=== PATIENT | female | born 1960 | race Caucasian/White ===

== ENCOUNTER → 2016-07-08 | Outpatient (CLI) | payer BC ==
[~2016-07-08] MED LIST: ALBUAER19 INH; BUTA1CAP6 PO; CHN/1 PO; CHOL20009 PO; CLOP1TAB15 PO; MULT-506 PO; PANT40TA PO; PROP80CA7 PO
== END | disposition home or self-care (01) ==
LOC: C.PATHSPEC 13:01
PROVIDERS: ATTEND Obstetrics & Gynecology
DX: N90.89 Other specified noninflammatory disorders of vulva and perineum (principal)

== ENCOUNTER → 2016-07-09 | Outpatient (CLI) | payer BC ==
[2016-07-09 09:37] LABS: BASO % 0.7 %; BASO ABS # 0.05 K/uL (0-0.2); COMPLETE YES; EOS % 1.8 %; HEMATOCRIT 38.8 % (37-47); IG% 0.1 %; LYMPH % 41.4 %; LYMPH ABS # 3.06 K/uL (1.2-3.4); MEAN CELL VOLUME 92.4 fL (80-100); MEAN CORPUSCULAR HEMOGLOBIN 31.2 pg (25-34); MEAN CORPUSCULAR HGB CONC 33.8 g/dl (32-36); MEAN PLATELET VOLUME 9.1 fL (7.4-10.4); MONO % 11.1 %; NEUT % 44.9 %; PLATELET COUNT 381 K/uL (130-400); WHITE BLOOD COUNT 7.39 K/uL (4.8-10.8)
[2016-07-09 09:53] LABS: URINE APPEARANCE CLEAR (CLEAR); URINE BILIRUBIN NEG (NEG); URINE COLOR YELLOW; URINE NITRITE NEG (NEG); URINE SPECIFIC GRAVITY 1.021 (1.000-1.030); UROBILINOGEN NEG (NEG); ZZUR CULT IF INDIC CLEAN CATCH NO
[2016-07-09 09:58] LABS: MANUAL MICROSCOPIC REQUIRED? YES; REVIEW REQ? NO
[2016-07-09 10:17] LABS: BLOOD UREA NITROGEN 19 mg/dl (7-18); BUN/CREATININE RATIO 28.8 (10-20); CALCIUM 8.9 mg/dl (8.5-10.1); CARBON DIOXIDE 28 mmol/L (21-32); CHLORIDE 107 mmol/L (98-107); CHOLESTEROL 169 mg/dl (0-200); CREATININE 0.65 mg/dl (0.60-1.20); GLUCOSE 97 mg/dl (70-99); POTASSIUM 3.7 mmol/L (3.5-5.1); SODIUM 141 mmol/L (136-145); URINE RBC 0-4 /hpf (0-4)
[2016-07-09 10:18] LABS: URINE BACTERIA NEG (NEG)
[2016-07-09 10:27] LABS: CHOLESTEROL/HDL RATIO 2.5; HDL CHOLESTEROL 68 mg/dl; LDL CHOLESTEROL CALCULATED 86 mg/dl; TRIGLYCERIDES 73 mg/dl (0-150); VERY LOW DENSITY LIPOPROT CALC 15 mg/dl
== END | disposition home or self-care (01) ==
LOC: C.LAB1850 06:51
PROVIDERS: ATTEND Internal Medicine
DX: Z11.59 Encounter for screening for other viral diseases (principal); E55.9 Vitamin D deficiency, unspecified; E78.5 Hyperlipidemia, unspecified; I63.9 Cerebral infarction, unspecified; N39.46 Mixed incontinence

== ENCOUNTER → 2016-07-22 | Outpatient (CLI) | payer BC | END | disposition home or self-care (01) | LOC: C.LABSPEC 17:17 | PROVIDERS: ATTEND Nurse Practitioner Adult Health | DX: N39.46 Mixed incontinence (principal) ==

== ENCOUNTER → 2017-01-19 | Outpatient (CLI) | payer BC ==
--- NOTE | 2017-01-19 09:44 | DIAGNOSTIC IMAGING REPORT ---
CT LUNG SCREENING, LOW DOSE WITH COMPUTER-AIDED DETECTION (CAD) CLINICAL HISTORY: Lung cancer screening. Smoking history. COPD. COMPARISON STUDY: Lung cancer screening CT dated 01/16/2016. CT DOSE: 76.96 mGy.cm TECHNIQUE: Low-dose helical CT was acquired without intravenous contrast from lung apices to bases and reconstructed at 2.5 mm every 2 mm. CAD was utilized for this study. A dose lowering technique was utilized adhering to the principles of ALARA. FINDINGS: Thyroid: Imaged portions of the thyroid gland are normal in appearance. Thoracic aorta: There is mild atherosclerotic calcification of the thoracic aorta, which is normal in caliber and demonstrates standard 3 vessel arch anatomy. Heart: The heart is top normal in size and without pericardial effusion. There are scattered coronary artery calcifications. Lungs and pleural spaces: Mild emphysematous changes observed. There is no airspace consolidation or pleural effusion. The trachea and central airways are patent. Mediastinum: There are scattered subcentimeter mediastinal lymph nodes. These are not pathologically enlarged by size criteria. Rubina: Not well assessed without IV contrast. Axilla: Clear. Upper abdomen: Partially visualized upper abdominal viscera is within normal limits. Skeletal structures: The skeletal structures are osteopenic. There are no lytic or blastic osseous lesions. IMPRESSION: 1. Mild emphysematous change. 2. There is no airspace consolidation or pleural effusion. 3. No concerning pulmonary lesion is seen. CAD FINDINGS: Overall Lung RADS Category: 1 Lung RADS Management Recommendation: Lung-RADS 1: Continue annual screening in 12 months. Lung RADS Follow Up Date: 2018-01-19 Electronically signed by: Anthony Solano M.D. 01/19/2017 9:43 AM Dictated Date/Time: 01/19/2017 9:35 AM
== END | disposition home or self-care (01) ==
LOC: C.CTS 09:14
PROVIDERS: ATTEND Internal Medicine
DX: Z87.891 Personal history of nicotine dependence (principal)

== ENCOUNTER → 2017-01-23 | Outpatient (CLI) | payer BC ==
[2017-01-23 10:01] LABS: ALT/SGPT 23 U/L (12-78); AST/SGOT 13 U/L (15-37); BLOOD UREA NITROGEN 20 mg/dl (7-18); BUN/CREATININE RATIO 33.3 (10-20); CALCIUM 8.6 mg/dl (8.5-10.1); CARBON DIOXIDE 28 mmol/L (21-32); CHLORIDE 108 mmol/L (98-107); GLUCOSE 93 mg/dl (70-99); POTASSIUM 3.8 mmol/L (3.5-5.1); SODIUM 141 mmol/L (136-145)
[2017-01-23 10:04] LABS: ALB/GLOB RATIO 1.1 (0.9-2); ALKALINE PHOSPHATASE 67 U/L (45-117); CHOLESTEROL 163 mg/dl (0-200); CHOLESTEROL/HDL RATIO 2.4; HDL CHOLESTEROL 67 mg/dl; LDL CHOLESTEROL CALCULATED 82 mg/dl; TRIGLYCERIDES 70 mg/dl (0-150); VERY LOW DENSITY LIPOPROT CALC 14 mg/dl
== END | disposition home or self-care (01) ==
LOC: C.LAB1850 06:56
PROVIDERS: ATTEND Nurse Practitioner
DX: E78.5 Hyperlipidemia, unspecified (principal)

== ENCOUNTER → 2017-03-02 | Outpatient (CLI) | payer BC | END | disposition home or self-care (01) | LOC: C.MAMM 11:18 | PROVIDERS: ATTEND Internal Medicine | DX: M85.88 Other specified disorders of bone density and structure, other site (principal); M85.851 Other specified disorders of bone density and structure, right thigh; M85.852 Other specified disorders of bone density and structure, left thigh ==

== ENCOUNTER → 2017-03-24 | Outpatient (CLI) | payer BC ==
[~2017-03-24] MED LIST changes: +GADAVIST IV PRN
--- NOTE | 2017-03-24 08:57 | DIAGNOSTIC IMAGING REPORT ---
MRA HEAD WITHOUT CONTRAST CLINICAL HISTORY: 56 years-old Female presenting with history of stroke 11-12 years ago, now having trouble with her left leg, repeated trapping, painful leg, history of migraines. TECHNIQUE: MR angiography of the head was performed without the use of intravenous contrast using 3-D [id number]-he-dmcpap technique. 3-D volumetric and/or maximum intensity projection (MIP) images were subsequently reconstructed for review. IV contrast: None. COMPARISON: None. FINDINGS: Anterior circulation including the intracranial portions of the internal carotid arteries and anterior and middle cerebral arteries patent. The anterior communicating artery is not well visualized, possibly hypoplastic or aplastic.. Posterior circulation demonstrates codominant vertebral arteries. Vertebrobasilar system patent. Posterior inferior cerebellar, left anterior inferior cerebellar artery, superior cerebellar, and posterior cerebral arteries patent. The right anterior inferior cerebellar artery is not well visualized. The left posterior commuting artery is patent. The right posterior commuting artery is either aplastic or hypoplastic. No evidence of aneurysm, focal vessel occlusion, or significant stenosis. IMPRESSION: 1. No evidence of aneurysm, focal vessel occlusion, or significant stenosis. Electronically signed by: Felix Zaldivar M.D. 03/24/2017 8:56 AM Dictated Date/Time: 03/24/2017 8:46 AM
--- NOTE | 2017-03-24 08:58 | DIAGNOSTIC IMAGING REPORT ---
NECK MRA HISTORY: I63.9 Stroke [id number] Occlusion and stenosis of carotid artery TECHNIQUE: Nhly-yh-rmaboz and gadolinium-enhanced MRA of the neck was performed both before and after the intravenous administration of contrast. All measurements were calculated based on NASCET criteria. Imaging was performed before and after administration of 6.5 cc of intravenous Gadavist. COMPARISON STUDY: 2005 FINDINGS: The aortic arch and proximal great vessels are widely patent. There is no significant stenosis, occlusion, or dissection identified within the bilateral common carotid, internal carotid, or vertebral arteries. IMPRESSION: No significant stenosis, occlusion, or dissection identified within the carotid or vertebral arteries. Electronically signed by: Sheldon Rojo M.D. 03/24/2017 8:57 AM Dictated Date/Time: 03/24/2017 8:52 AM
--- NOTE | 2017-03-24 09:00 | DIAGNOSTIC IMAGING REPORT ---
Brain MRI WITH AND WITHOUT CONTRAST HISTORY: Left leg weakness. Migraines. I63.9 Stroke syndrome I65.29 Occlusion and stenosis of carotid arteries TECHNIQUE: Multiplanar multisequence MRI of the brain was performed both before and after the intravenous administration of contrast. COMPARISON STUDY: None. FINDINGS: No areas of restricted diffusion to suggest acute infarction. The midline structures are intact. Mild mucosal thickening within the right maxillary sinus and ethmoid air cells. Small right mastoid effusion. The left mastoid air cells are clear. The major vascular flow voids at the skull base are well-maintained. The ventricles and sulci are within normal limits. There is no mass, hematoma, midline shift. A few scattered punctate foci of T2 hyperintensity seen within the white matter of the supratentorial brain. No abnormal enhancement. IMPRESSION: 1. No acute intracranial abnormality. 2. A few scattered punctate foci of T2 hyperintensity seen within the white matter of the supratentorial brain. These are nonspecific but favor mild microvascular ischemic change. Migraines or less likely a demyelinating process could also result in a similar appearance. Electronically signed by: Williams Hernandez M.D. 03/24/2017 8:58 AM Dictated Date/Time: 03/24/2017 8:51 AM
== END | disposition home or self-care (01) ==
LOC: C.MRI 07:30
PROVIDERS: ATTEND Psychiatry & Neurology Neurology
DX: I65.29 Occlusion and stenosis of unspecified carotid artery (principal); I63.9 Cerebral infarction, unspecified

== ENCOUNTER → 2017-05-12 | Outpatient (CLI) | payer BC ==
[~2017-05-12] MED LIST changes: -GADAVIST IV PRN
--- NOTE | 2017-05-13 14:02 | MAMMOGRAPHY REPORT ---
BILATERAL DIGITAL SCREENING MAMMOGRAM TOMOSYNTHESIS WITH CAD: 05/12/2017 CLINICAL HISTORY: Routine screening. Patient has no complaints. TECHNIQUE: Breast tomosynthesis in addition to standard 2D mammography was performed. Current study was also evaluated with a Computer Aided Detection (CAD) system. COMPARISON: Comparison is made to exams dated: 05/14/2015 mammogram, 05/11/2014 mammogram, 05/10/2013 mamm ogram, 05/03/2012 mammogram, 04/29/2011 mammogram, and 01/28/2010 mammogram - [facility]. BREAST COMPOSITION: The tissue of both breasts is extremely dense, which lowers the sensitivity of m ammography. FINDINGS: There are stable calcifications in both breasts. No suspicious mass, architectural distor tion or cluster of microcalcifications is seen. IMPRESSION: ACR BI-RADS CATEGORY 2: BENIGN There is no mammographic evidence of malignancy. A 1 year screening mammogram is recommended. The pa tient will receive written notification of the results. Approximately 10% of breast cancers are not detected with mammography. A negative mammographic report should not delay biopsy if a clinically suggestive mass is present. Vandana Lovell M.D. ay/:05/12/2017 17:10:29 Nurse Ob: Argelia BOWLING(Ledy)(Hao)(BD), [facility] letter sent: Normal 1/2 BI-RADS Code: ACR BI-RADS Category 2: Benign
== END | disposition home or self-care (01) ==
LOC: C.MAMM 08:51
PROVIDERS: ATTEND Internal Medicine
DX: Z12.31 Encounter for screening mammogram for malignant neoplasm of breast (principal)